=== PATIENT | female | born 1945 | race Caucasian/White ===

== ENCOUNTER 2016-12-12 18:12 | Emergency (ER) | payer OTHER, MEDICAID ==
[~2016-12-12] VITALS: Ht 165.1 cm; Wt 80.0 kg
[~2016-12-12 18:12] MED LIST: LOSA100T14 PO; METO100T5 PO; RANI150C12 PO; SERT-112 PO
[2016-12-13] MEDS: TETANUS, DIPHTHERIA, PERTUSSIS VAC/PF 0.5ML (>7YR OLD) IM ONE (03:30)
[2016-12-13] MEDS: BACITRACIN ZINC OINT UDPKT TOP ONE (03:30)
[2016-12-13 03:35] VITALS: BP 162/67
== END 2016-12-13 04:23 | disposition home or self-care (01) ==
LOC: ER 18:32
DX: S81.801A Unspecified open wound, right lower leg, initial encounter (principal); I10 Essential (primary) hypertension; E11.9 Type 2 diabetes mellitus without complications; Z88.0 Allergy status to penicillin; W50.4XXA Accidental scratch by another person, initial encounter; Y93.89 Activity, other specified; Y92.89 Other specified places as the place of occurrence of the external cause; Y99.8 Other external cause status
CPT/HCPCS: 90471; 90715; 99283